=== PATIENT | female | born 1950 | race Caucasian/White ===

== ENCOUNTER 2018-12-17 06:12 | Day surgery (SDC) | payer MEDICARE, OTHER ==
[~2018-12-17 06:12] MED LIST: Midazolam 1 MG/ML 2 ML SDV ONE; fentaNYL 100 MCG/2 ML SDV ONE
[2018-12-17] MEDS ORDERED: Midazolam 1 MG/ML 2 ML SDV IV ONE ×4 (06:13→07:31)
[2018-12-17] MEDS ORDERED: fentaNYL 100 MCG/2 ML SDV IV ONE ×3 (06:13→07:29)
[2018-12-17] MEDS ORDERED: Dextrose 5%-0.45% NaCl 1,000 ML IV SCH (06:30)
--- NOTE | 2018-12-17 08:08 | OR ---
DATE: 12/17/2018 PROCEDURES: Esophagogastroduodenoscopy and multiple pinch biopsies. INSTRUMENT USED: GIF-HQ190 Olympus video panendoscope. PREMEDICATIONS: No oral topical anesthesia used. Fentanyl 100 mcg intravenous, Versed 2 mg intravenous. The procedure was done under pulse oximetry, BP recording, and compliance monitor. INDICATION: The patient with dyspepsia, recent passage of tarry black stools, and recent weight loss. Esophagogastroduodenoscopy is performed for detection of any active erosive lesions. Malignancy also under consideration. H. pylori status to be determined. Endoscopic hemostasis therapy if needed. DESCRIPTION OF PROCEDURE: The scope was passed with ease. Adequate visualization of the esophagus was made from proximal to distal areas. No upper esophageal lesions identified. No distal esophageal stricture. No uphill or downhill esophageal varices. No Laura-Davis tear. No evidence of erosive esophagitis by Mccormick criteria. No esophageal polyp or tumor mass identified. Small sliding hiatal hernia was noted. No proximal gastric varices noted. Gastric fundus examination by retroflexion showed no polypoid lesions. No gastric ulcer, malignant mass, or vascular ectasia identified. Duodenal bulb showed no ulcer. The visualized second part of the duodenum was unremarkable. Multiple pinch biopsies were taken from the gastric antrum and proximal body and sent for PyloriTek test for H. pylori, and if negative in an hour, the tissue is to be sent for histopathology. No bleeding was noted from any of the visualized areas at the completion of examination. Photographs were taken of the duodenal bulb, gastric antrum, fundus, and distal esophagus. IMPRESSION: Small sliding hiatal hernia. The patient tolerated the procedure well. [facility] /[id number]
--- NOTE | 2018-12-17 10:38 | LETTER ---
12/17/2018 ALONDRA Tijerina [facility] [address] [place] [address] RE: LALITA LAZO : 1950 Dear Ms. Galeano: Ms. Lalita Lazo had esophagogastroduodenoscopy done this morning and she tolerated the procedure well. I herewith send a copy of the endoscopy note and photographs for your review. Thank you. Sincerely, [facility] /[id number]
== END 2018-12-17 09:49 | disposition home or self-care (01) ==
LOC: DL.ENDO 06:12
PROVIDERS: ATTEND Internal Medicine Gastroenterology
DX: R10.13 Epigastric pain (principal); R63.4 Abnormal weight loss; K44.9 Diaphragmatic hernia without obstruction or gangrene; I10 Essential (primary) hypertension; E78.5 Hyperlipidemia, unspecified; D47.3 Essential (hemorrhagic) thrombocythemia; F17.210 Nicotine dependence, cigarettes, uncomplicated; Z88.1 Allergy status to other antibiotic agents
CPT/HCPCS: 87077; 88305; J2250; J3010; J7042

== ENCOUNTER 2018-12-21 05:13 | Day surgery (SDC) | payer MEDICARE, OTHER ==
[2018-12-21] MEDS ORDERED: fentaNYL 100 MCG/2 ML SDV IV ONE ×3 (05:14→06:31)
[2018-12-21] MEDS ORDERED: Midazolam 1 MG/ML 2 ML SDV IV ONE ×5 (05:14→06:45)
[2018-12-21] MEDS ORDERED: Dextrose 5%-0.45% NaCl 1,000 ML IV SCH (06:00)
[2018-12-21] MEDS ORDERED: Sodium Chloride 0.9% 10 ML Syringe FLUSH PRN (06:00)
[2018-12-21] MEDS ORDERED: fentaNYL 100 MCG/2 ML SDV ONE (06:15)
[2018-12-21] MEDS ORDERED: Midazolam 1 MG/ML 2 ML SDV ONE (06:15)
[2018-12-21] MEDS ORDERED: Sodium Chloride 0.9% 1,000 ML IV SCH (07:00)
--- NOTE | 2018-12-21 08:44 | OR ---
DATE: 12/21/2018 PROCEDURES: Total colonoscopy, narrow-band imaging, and multiple pinch biopsies. INSTRUMENT USED: PCF-H180 DL Olympus video colonoscope. PREMEDICATIONS: Fentanyl 100 mcg intravenous, Versed 3 mg intravenous. Nasal O2 cannula. The procedure was done under pulse oximetry, BP recording, and case monitor. INDICATION: The patient with persistent abdominal pain and intermittent diarrhea unexplained and not responsive to medical measures, had some recent weight loss. Colonoscopic examination is done for detection of any polypoid lesions and removal, endoscopic hemostasis therapy if needed. DESCRIPTION OF PROCEDURE: Initial rectal exam showed external hemorrhoidal tags. Rigid anoscopy showed a patchy erythema on the rectal mucosa along with dense mucous. The colonoscope was passed with ease. Photographs were taken of the rectum showing a pseudomembrane appearance. NBI views were obtained. Multiple pinch biopsies were obtained and sent for histopathology. Diverticular opening was noted in the distal left colon. The scope was passed with ease up to the ileocecal area. Photographs were taken of the normal-appearing cecum identified by double-bulged ileocecal folds. No bleeding was noted from any of the visualized areas at the commencement of the examination. There was some amount of fecal material that had to be aspirated. Bowel preparation, Rover Scale 2. No stricture. No vascular ectasia. No large isolated ulcerations seen. No polyp or tumor mass identified. Probing the proximal sides of folds and flexures, using adequate distention and clearing up the stool material, withdrawal of the scope was made. [id number] time over 6 minutes. No bleeding was noted from any of the visualized areas at the completion of the examination. IMPRESSION: 1. External hemorrhoids. 2. Diverticulosis. The patient tolerated the procedure well. [facility] /[id number]
--- NOTE | 2018-12-21 10:32 | LETTER ---
12/21/2018 ALONDRA Tijerina [facility] [address] [place] [address] RE: LALITA LAZO : 1950 Dear Ms. Galeano: . Lalita Watts Marco had colonoscopic examination done this morning and she tolerated the procedure well. I herewith send a copy of the endoscopy note and photographs for your review. Thank you. Sincerely, [facility] /[id number]
== END 2018-12-21 09:12 | disposition home or self-care (01) ==
LOC: DL.ENDO 05:13
PROVIDERS: ATTEND Internal Medicine Gastroenterology
DX: K52.9 Noninfective gastroenteritis and colitis, unspecified (principal); K25.9 Gastric ulcer, unspecified as acute or chronic, without hemorrhage or perforation; K57.30 Diverticulosis of large intestine without perforation or abscess without bleeding; K64.8 Other hemorrhoids; I10 Essential (primary) hypertension; J44.9 Chronic obstructive pulmonary disease, unspecified; F17.210 Nicotine dependence, cigarettes, uncomplicated; H91.90 Unspecified hearing loss, unspecified ear; E78.5 Hyperlipidemia, unspecified; Z88.1 Allergy status to other antibiotic agents
CPT/HCPCS: 45380; J2250; J3010; J7030; J7042

== ENCOUNTER 2019-09-15 09:15 | Emergency (ER) | payer MEDICARE, OTHER ==
[2019-09-15] MEDS: Aspirin 81 MG Tab.Chew PO ONE (09:26)
--- NOTE | 2019-09-15 09:28 | EDM.PDOC ---
ED HPI GENERAL MEDICAL PROBLEM - General Stated Complaint: UNKNOWN Time Seen by Provider: 09/15/19 09:15 Source of Information: Reports: Patient History Limitations: Reports: No Limitations - History of Present Illness INITIAL COMMENTS - FREE TEXT/NARRATIVE: This 69 yo female patient reports to the ED with mid chest pain and increased shortness of breath. The patient reports her symptoms started last night and have been getting worse. The patient states she has not taken anything for temporary symptom relief. The patient reports she has had no similar symptoms in the past. The patient reports she is a daily cigarette smoker (1 ppd since she was 20 years old). The patient describes her pain as dull ache in the middle of her chest. Onset Date: 09/14/19 Duration: Constant, Getting Worse Location: Reports: Chest Quality: Reports: Other Severity: Severe Improves with: Reports: None Worsens with: Reports: None Associated Symptoms: Reports: Chest Pain, Shortness of Breath Chest Pain Score (Numeric/FACES): 4 - Related Data Allergies Allergy/AdvReac Type Severity Reaction Status Date / Time cephalexin Allergy Hives Verified 12/21/18 05:50 Home Meds: Home Meds Calcium Carb & Citrate/Vit D3 [Calcium + D3 ER Tablet] 1 tab PO DAILY 12/16/18 [ History] Lisinopril 10 mg PO DAILY 12/16/18 [History] Multivitamin with Minerals [Multiple Vitamin] 1 tab PO DAILY 12/16/18 [History] Levothyroxine [Synthroid] 50 mcg PO DAILY 12/21/18 [History] Past Medical History HEENT History: Reports: Hard of Hearing Cardiovascular History: Reports: High Cholesterol, Hypertension Respiratory History: Reports: None Gastrointestinal History: Reports: None Genitourinary History: Reports: None RELAY DISPATCHER History: Reports: Fibroids, , Spontaneous Musculoskeletal History: Reports: None Neurological History: Reports: None Psychiatric History: Reports: None Endocrine/Metabolic History: Reports: None, Hypothyroidism Hematologic History: Reports: None Immunologic History: Reports: None Oncologic (Cancer) History: Reports: None Dermatologic History: Reports: None - Infectious Disease History Infectious Disease History: Reports: Chicken Pox, Mumps - Past Surgical History Head Surgeries/Procedures: Reports: None HEENT Surgical History: Reports: Oral Surgery Cardiovascular Surgical History: Reports: None Respiratory Surgical History: Reports: None GI Surgical History: Reports: EGD Female Surgical History: Reports: None Endocrine Surgical History: Reports: None Neurological Surgical History: Reports: None Musculoskeletal Surgical History: Reports: None Oncologic Surgical History: Reports: None Dermatological Surgical History: Reports: Other (See Below) Social & Family History - Family History Family Medical History: Noncontributory - Caffeine Use Caffeine Use: Reports: Coffee Caffeine Use Comment: 3 cups daily ED ROS GENERAL - Review of Systems Review Of Systems: ROS reveals no pertinent complaints other than HPI. ED EXAM, GENERAL - Physical Exam Exam: See Below Exam Limited By: No Limitations General Appearance: Alert, WD/WN, Moderate Distress Eye Exam: Bilateral Eye: EOMI, Normal Inspection, PERRL Ears: Normal External Exam, Normal Canal, Hearing Grossly Normal, Normal TMs Nose: Normal Inspection, Normal Mucosa, No Blood Throat/Mouth: Normal Inspection, Normal Lips, Normal Teeth, Normal Gums, Normal Oropharynx, Normal Voice, No Airway Compromise Head: Atraumatic, Normocephalic Neck: Normal Inspection, Supple, Non-Tender, Full Range of Motion Respiratory/Chest: Lungs Clear, Decreased Breath Sounds Cardiovascular: Normal Peripheral Pulses, Regular Rate, Rhythm, No Edema, No Gallop, No JVD, No Murmur, No Rub GI/Abdominal: Normal Bowel Sounds, Soft, Non-Tender, No Organomegaly, No Distention, No Abnormal Bruit, No Mass (Female) Exam: Deferred Rectal (Female) Exam: Deferred Back Exam: Normal Inspection, Full Range of Motion, NT Extremities: Normal Inspection, Normal Range of Motion, Non-Tender, Normal Capillary Refill, No Pedal Edema Neurological: Alert, Oriented, CN II-XII Intact, Normal Cognition Psychiatric: Normal Affect, Normal Mood Skin Exam: Warm, Dry, Intact, Normal Color, No Rash Lymphatic: No Adenopathy Course - Vital Signs Last Recorded V/S: Last Vital Signs Temp 37.0 C 09/15/19 09:20 Pulse 3 L 09/15/19 09:20 Resp 20 09/15/19 09:20 BP 143/76 H 09/15/19 09:20 Pulse Ox 95 09/15/19 09:20 - Orders/Labs/Meds Orders: Active Orders 24 hr Category Date Time Status EKG Documentation Completion [RC] URGENT Care 09/15/19 09:16 Active Chest w Cont [CT] Urgent Exams 09/15/19 10:06 Ordered CULTURE BLOOD [BC] Stat Lab 09/15/19 09:32 Received Labs: Laboratory Tests 09/15/19 09/15/19 09/15/19 Range/Units 09:18 09:18 09:18 WBC 12.0 H (5.0-10.0) 10^3/uL RBC 4.48 (4.2-5.4) 10^6/uL Hgb 15.2 (12.0-16.0) g/dL Hct 44.6 (37.0-47.0) % MCV 99.6 (80-100) fL MCH 33.9 (27.0-34.0) pg MCHC 34.1 (33.0-35.0) g/dL Plt Count 292 (150-450) 10^3/uL Neut % (Auto) 77.8 H (42.2-75.2) % Lymph % (Auto) 8.7 L (20.5-50.1) % Pike % (Auto) 12.9 H (2-8) % Eos % (Auto) 0.4 L (1.0-3.0) % Baso % (Auto) 0.2 (0.0-1.0) % PT 8.7 L (9.0-12.0) SEC INR 0.8 L (0.9-1.2) D-Dimer, Quantitative 493 H (0-400) ng/mL Sodium 137 (135-145) mmol/L Potassium 3.7 (3.6-5.0) mmol/L Chloride 99 L (101-111) mmol/L Carbon Dioxide 26.0 (21.0-31.0) mmol/L Anion Gap 15.7 BUN 7 (7-18) mg/dL Creatinine 0.7 (0.6-1.3) mg/dL Est Cr Clr Drug Dosing TNP Estimated GFR (MDRD) > 60 BUN/Creatinine Ratio 10.00 Glucose 110 H (74-105) mg/dL Lactic Acid (0.5-2.2) mmol/L Calcium 9.4 (8.4-10.2) mg/dl Total Bilirubin 0.8 (0.2-1.0) mg/dL AST 19 (10-42) IU/L ALT 13 (10-60) IU/L Alkaline Phosphatase 48 (42-121) IU/L Troponin I < 0.02 (0.00-0.02) ng/ml Total Protein 7.6 (6.7-8.2) g/dl Albumin 4.1 (3.2-5.5) g/dl Globulin 3.5 Albumin/Globulin Ratio 1.17 09/15/19 Range/Units 09:32 WBC (5.0-10.0) 10^3/uL RBC (4.2-5.4) 10^6/uL Hgb (12.0-16.0) g/dL Hct (37.0-47.0) % MCV (80-100) fL MCH (27.0-34.0) pg MCHC (33.0-35.0) g/dL Plt Count (150-450) 10^3/uL Neut % (Auto) (42.2-75.2) % Lymph % (Auto) (20.5-50.1) % Pike % (Auto) (2-8) % Eos % (Auto) (1.0-3.0) % Baso % (Auto) (0.0-1.0) % PT (9.0-12.0) SEC INR (0.9-1.2) D-Dimer, Quantitative (0-400) ng/mL Sodium (135-145) mmol/L Potassium (3.6-5.0) mmol/L Chloride (101-111) mmol/L Carbon Dioxide (21.0-31.0) mmol/L Anion Gap BUN (7-18) mg/dL Creatinine (0.6-1.3) mg/dL Est Cr Clr Drug Dosing Estimated GFR (MDRD) BUN/Creatinine Ratio Glucose (74-105) mg/dL Lactic Acid 1.1 (0.5-2.2) mmol/L Calcium (8.4-10.2) mg/dl Total Bilirubin (0.2-1.0) mg/dL AST (10-42) IU/L ALT (10-60) IU/L Alkaline Phosphatase (42-121) IU/L Troponin I (0.00-0.02) ng/ml Total Protein (6.7-8.2) g/dl Albumin (3.2-5.5) g/dl Globulin Albumin/Globulin Ratio Meds: Medications Discontinued Medications Generic Name Dose Route Start Last Admin Trade Name Urmila PRN Reason Stop Dose Admin Aspirin 324 mg 09/15/19 09:20 09/15/19 09:26 Aspirin PO 09/15/19 09:21 324 mg ONETIME ONE Administration Iopamidol 100 ml 09/15/19 10:06 09/15/19 10:26 Isovue-370 (76%) IVPUSH 09/15/19 10:07 56 ml ONETIME ONE Administration Ketorolac Tromethamine 30 mg 09/15/19 11:02 Toradol IVPUSH 09/15/19 11:03 ONETIME ONE Departure - Departure Time of Disposition: 11:04 Disposition: Home, Self-Care 01 Condition: Fair Clinical Impression: Nonspecific chest pain, Chest wall pain Instructions: Nonspecific Chest Pain, Chest Wall Pain, [id number] Forms: ED Department Discharge Care Plan Goals: The patient was advised of the examination, lab, EKG, x-ray and CT results during the visit. The patient was given an initial dose of Aspirin while in the ED. The patient was also given a dose of IV Toradol. The patient was discharged with a script for Toradol (10 mg) #20 to take 1 by mouth every 6 hours. The patient was advised of some enlarged lymph nodes identified in the CT scan that she should follow-up with her primary care provider for continued evaluation. If the patient has any additional symptoms or concerns, the patient should either return to the emergency department or visit her primary care facility. - My Orders Last 24 Hours: My Active Orders 09/15/19 09:16 EKG Documentation Completion [RC] URGENT 09/15/19 09:32 CULTURE BLOOD [BC] Stat 09/15/19 10:06 Chest w Cont [CT] Urgent - Assessment/Plan Last 24 Hours: My Active Orders 09/15/19 09:16 EKG Documentation Completion [RC] URGENT 09/15/19 09:32 CULTURE BLOOD [BC] Stat 09/15/19 10:06 Chest w Cont [CT] Urgent
--- NOTE | 2019-09-15 09:48 | CR ---
EXAMINATION: Chest 1V Frontal SEX: Female AGE: 69 years CLINICAL HISTORY: 69-year-old female emergency Department complaining of CHEST PAIN. No comparisons available. INTERPRETATION: 1. External mobile ui designer leads. Normal cardiac silhouette (size and configuration). 2. No pulmonary vascular congestion, cephalization of flow, alveolar edema or dependent pleural effusion (subtle blunting CP angle on the right appears chronic. Significance?). 3. No lung mass, hilar lymphadenopathy or focal lobar pneumonia. 4. No atelectasis/collapse. 5. No pneumothorax. CONCLUSION: No acute cardiopulmonary abnormality.
[2019-09-15 09:57] LABS: ANION GAP 15.7; CHLORIDE,CL 99 mmol/L (101-111); SODIUM,NA 137 mmol/L (135-145)
[2019-09-15] MEDS: Iopamidol 755 Mg/ML 100 ML Bottle IVPUSH ONE (10:26)
[2019-09-15] MEDS: Ketorolac 30 MG/ML SDV IVPUSH ONE (11:07)
--- NOTE | 2019-09-15 11:13 | CT ---
EXAMINATION: Chest w Cont SEX: Female AGE: 69 years CLINICAL HISTORY: 69-year-old 120 pound female chest pain and shortness of breath (serum D dimer 493). 1 PPD smoker, for 50 years. "No acute cardiopulmonary abnormality" on plain chest radiograph. Rule out pulmonary embolic disease or other chest abnormality. Scan technique: Volume acquisition of data from the chest (bony thorax, lungs and mediastinum) obtained during the intravenous administration 56 cc nonionic Isovue 370 contrast (4.3 cc/s via injector) while the patient was lying supine on the Siemens multislice scanner [place], [place]. All data archived in the PACS system for storage, reformatting axial/sagittal/coronal planes and study. Interpretation: 1. Anterior tracheal, mediastinal and right hilar LYMPHADENOPATHY. 2. No discrete parenchymal nodule or suspicious lung mass lesion. Mild peribronchial "cuffing" 3. Bilateral apical pleural scarring and some pleural cyst/bleb medial apex on the left. Bilateral peribronchial "cuffing". 4. No intraluminal filling defect or thrombus in the pulmonary artery circulation; no abnormal focal lobar oligemia; no infiltrate/atelectasis; no peripheral wedge shaped infarcts (Westermark sign); and no dependent pleural effusion. 5. Normal cardiac silhouette. No pericardial effusion. Normal caliber thoracic aorta (no aneurysm/dissection). No pulmonary venous congestion/cephalization. No alveolar edema. 6. No pneumonic infiltrate, atelectasis or collapse. 7. Multilevel disc disease and hypertrophic arthritic changes dorsal spine. Gastritis. Upper abdominal viscera unremarkable. INTERPRETATION: Lymphadenopathy. No evidence pulmonary artery thrombosis, embolism or infarct. No lung mass, infiltrate or atelectasis. CONCLUSION:
== END 2019-09-15 11:20 | disposition home or self-care (01) ==
LOC: DL.ED 09:15
DX: R07.89 Other chest pain (principal); R59.0 Localized enlarged lymph nodes; I10 Essential (primary) hypertension; E03.9 Hypothyroidism, unspecified; F17.210 Nicotine dependence, cigarettes, uncomplicated; Z79.890 Hormone replacement therapy; Z79.899 Other long term (current) drug therapy; Z88.1 Allergy status to other antibiotic agents
CPT/HCPCS: 36415; 71045; 71260; 80053; 83605; 84484; 85025; 85379; 85610; 87040; 93005; 96374; 99285; A9270; J1885; Q9967